=== PATIENT | male | born 1995 | race Caucasian/White ===

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

== ENCOUNTER → 2022-05-03 | Outpatient (CLI) | payer OTHER, MEDICAID ==
[2022-05-03 11:25] LABS: ALBUMIN 4.4 gm/dL (3.5-5.0); BILIRUBIN,TOTAL 0.7 mg/dL (0.2-1.2); CALCIUM 9.2 mg/dL (8.4-10.2); CHOLESTEROL RISK RATIO 5.7; CREATININE, serum 1.14 mg/dL (0.72-1.25); POTASSIUM 3.9 mmol/L (3.5-4.5); TOTAL PROTEIN 8.8 gm/dL (6.2-8.1)
== END ==
LOC: COL.LAB 10:31
DX: Z79.899 Other long term (current) drug therapy (principal)